=== PATIENT | male | born 2000 | race Caucasian/White ===

== ENCOUNTER 2021-02-24 18:42 | Emergency (ER) | payer OTHER ==
[~2021-02-24] VITALS: Ht 170.2 cm; Wt 82.0 kg
[2021-02-24 19:03] VITALS: BP 155/89
[2021-02-24] MEDS ORDERED: LIDO:MAALOX 1:1 20 ML SINGLE DOSE. PO ONE (20:15)
[2021-02-24] MEDS ORDERED: FAMOTIDINE 20 MG/2 ML VIAL IVP ONE (20:15)
[2021-02-24] MEDS ORDERED: IOHEXOL 300 MG/ML 75 ML VIAL. IV ONE (20:30)
--- NOTE | 2021-02-24 20:33 | PHYS DOC ---
Past History Past Surgical History: No Surgical History Additional Smoking Information: Vape nicotine Alcohol Use: Occasionally Drug Use: None General Adult EDM: Chief Complaint: ABDOMINAL PAIN HPI: HPI: Patient is a 20 year old male presenting to the ED with abdominal pain. The pain is located in midline and left abdomen, started last night and has gotten worse. He describes the pain as sharp and throbbing. Pain worsens with movement such as climbing stairs. He states he had a similar pain a few years ago, he got a CT scan and was told he had "intestinal inflammation". Denies nausea, vomiting, diarrhea. No changes in the diet. Denies changes in bowel movements and urination. Denies blood in the stool. Denies chest pain, SOB or palpitations. Denies sick contacts or any history of trauma. Review of Systems: Review of Systems: Constitutional: Denies fever or chills Eyes: Denies redness or eye pain HENT: Denies nasal congestion or sore throat Respiratory: Denies cough or shortness of breath Cardiovascular: Denies chest pain or palpitations GI: Has abdominal pain. Denies nausea, or vomiting : Denies dysuria or hematuria Musculoskeletal: Denies back pain or joint pain Integument: Denies rash or skin lesions Neurologic: Denies headache, focal weakness or sensory changes Complete systems were reviewed and found to be within normal limits, except as documented in this note. Current Medications: Current Meds: Current Medications Medications (Trade) Dose Ordered Sig/[place] Start Time Stop Time Status Last Admin Dose Admin Famotidine (Pepcid Vial) 20 mg 1X ONCE 02/24/21 20:15 02/24/21 20:16 DC Multi-Ingredient Mouthwash/Gargle (Gi Cocktail) 20 ml 1X ONCE 02/24/21 20:15 02/24/21 20:16 DC Allergies: Allergies: Allergies Coded Allergies Type Severity Reaction Last Updated Verified No Known Drug Allergies 02/24/21 No Physical Exam: PE: Constitutional: Well developed, well nourished, no acute distress, non-toxic appearance HENT: Normocephalic, atraumatic Eyes: EOMI, conjunctiva normal, no discharge Neck: Normal range of motion, no tenderness, supple Lungs & Thorax: No respiratory distress, equal chest rise and fall Abdomen: Soft, no distention, no scars, no ecchymosis. Pain to palpation in the LLQ, midline and suprapubic area. Skin: Warm, dry, no erythema, no rash Back: No tenderness, no CVA tenderness Extremities: No tenderness, ROM intact, no edema Neurologic: Alert and oriented X 3, normal motor function, normal sensory function, no focal deficits noted Psychologic: Affect normal, judgment normal Current Patient Data: Vital Signs: Vital Signs Date Time Temp Pulse Resp B/P (MAP) Pulse Ox O2 Delivery O2 Flow Rate FiO2 02/24/21 19:03 99.4 85 16 155/89 98 Room Air EKG: EKG: [] Radiology/Procedures: Radiology/Procedures: PROCEDURE: CT ABD PELV W/ IV CONTRST ONLY Examination: CT of the abdomen pelvis with IV contrast HISTORY: History of left lower quadrant abdominal pain COMPARISON: None available TECHNIQUE: Axial CT images of the abdomen pelvis were performed with IV contrast. Coronal and sagittal reformats performed Exposure: One or more of the following individualized dose reduction techniques were utilized for this examination: 1. Automated exposure control 2. Adjustment of the mA and/or kV according to patient size 3. Use of iterative reconstruction technique FINDINGS: The bibasilar lungs are clear. 4.5 mm nodule left lower lobe of the lung. No evidence of free air identified in the abdomen. The liver, spleen, adrenals grossly appears unremarkable. The gallbladder is mildly distended. The stomach is mildly distended. The visualized pancreas grossly appears unremarkable. Small bowel is nondilated. The appendix is normal. Multiple colon diverticulosis. There is moderate inflammatory fat stranding identified about the distal descending colon likely acute diverticulitis. Urinary bladder is mildly distended. The bilateral kidneys enhance symmetrically. Tiny subcentimeter cyst bilateral kidneys likely cysts. No evidence of lytic bony destructive lesion. IMPRESSION: 1. Moderate inflammatory fat stranding identified about the distal descending colon likely acute diverticulitis. 2. 4.5 mm nodule left lower lobe of the lung. Follow-up per Fleischner Society guidelines. Fleischner Society 2017 guidelines for management of incidentally detected pulmonary nodules in adults SOLID NODULES: SINGLE NODULE: Less than 6 mm; low risk-no routine follow-up; high risk- optional CT study at 12 months. (Certain patients at high risk with suspicious nodule morphology, upper lobe location, or both may warrant 12 month follow-up) 6-8 mm; low risk-CT study at 6-12 months, then consider CT at 18-24 months; high risk-CT study at 6-12 months, then CT at 18-24 months. Greater than 8 mm; low risk-consider CT at 3 months, PET/CT or tissue sampling; high risk-consider CT at 3 months, PET/CT, or tissue sampling. MULTIPLE NODULES: Less than 6 mm; low risk-no routine follow-up; high risk- optional CT at 12 months (certain patients at high risk for suspicious nodule. If solid components or growth develops, consider resection morphology, upper lobe location, or both may warrant 12 month follow-up) 6-8 mm; low risk-CT at 3-6 months, then consider CT at 18-24 months; high risk- CT at 3-6 months, then at 18-24 months. Greater than 8 mm; low risk-CT at 3-6 months, then consider CT at 18-24 months; high risk-CT at 3-6 months, then at 18-24 months. Note - Use most suspicious nodule as guide to management. Follow-up intervals may vary according to size and risk. SUBSOLID NODULES SINGLE(ground glass): less than 6 mm-no routine follow-up; greater than or equal to 6 mm-CT at 6-12 months to confirm persistence, then CT every 2 years until 5 years. (In certain suspicious nodules less than 6 mm, consider follow-up at 2 and 4 years. If solid component(s) or growth develops, consider resection.) SINGLE (part solid): Less than 6 mm-no routine follow-up; greater than or equal to 6 mm-CT at 3-6 months to confirm persistence. If unchanged and solid component remains less than 6 mm, annual CT should be performed for 5 years. (In practice, part solid nodules cannot be defined as such until greater than or equal to 6 mm, and nodules less than 6 mm do not usually require follow-up. Persistent part solid nodules with solid components greater than or equal to 6 mm should be considered highly suspicious.) MULTIPLE; less than 6 mm-CT at 3-6 months. If stable, consider CT at 2 and 4 years; greater than or equal to 6 mm-CT at 3-6 months. Subsequent management based on the most suspicious nodule(s). (Multiple less than 6 mm pure ground glass nodules are usually benign, but consider follow-up in selected patients at high risk at 2 and 4 years.) NOTE - these recommendations do not apply to lung cancer screening, patients with immunosuppression, or patients with known primary cancer. Electronically signed by: Ronak Santa MD (02/24/2021 9:08 PM) [id number] Heart Score: C/O Chest Pain: N/A Course & Med Decision Making: Course & Med Decision Making Patient is a 20 year old male presenting with abdominal pain. Patient had pain in mostly located in LLQ. No fever, nausea or vomiting and no pain in the RUQ or RLQ, no pain at McBurney's point, likelihood of appendicitis low. Patient given GI cocktail in the ED for symptomatic control. Abdominal CT showed signs of acute diverticulitis. There was an incidental finding of a 4.5 mm nodule left lower lobe of the lung. Prescribed pain medication and Docusate for symptomatic relief as well as Flagyl and Cirpo for the infection. Patient is counseled on following up on the nodule. Patient stable for discharge with outpatient follow-up with PCP. Discussed findings and plan with patient, who acknowledges understanding and agreement. Dragon Disclaimer: Dragalberto Disclaimer: This electronic medical record was generated, in whole or in part, using a voice recognition dictation system. Departure Departure: Impression: Primary Impression: Acute diverticulitis Disposition: HOME / SELF CARE / HOMELESS Condition: STABLE Referrals: SHU BLAND DO (PCP) JAE FLANNERY MD Patient Instructions: Diverticulitis, [id number] Additional Instructions: Increase fluid hydration. Take antibiotic as prescribed. Pain medication as n eeded. Scripts Sennosides/Docusate Sodium (Colace 2-in-1 Tablet) 1 Each Tablet 1 TAB PO QHS PRN for CONSTIPATION, #20 TAB 0 Refills Prov: RIK DIEGO DO 02/24/21 Hydrocodone/Acetaminophen (Hydrocodone-Acetamin 5-325 mg) 1 Each Tablet 0.5-1 EACH PO Q4-6HRS PRN for PAIN, #14 TAB Prov: RIK DIEGO DO 02/24/21 Metronidazole (FLAGYL) 500 Mg Tablet 1 TAB PO TID for Diverticulitis for 7 Days, #21 TAB Prov: RIK DIEGO DO 02/24/21 Ciprofloxacin Hcl (CIPRO) 500 Mg Tablet 1 TAB PO BID for Diverticulitis for 7 Days, #14 TAB Prov: RIK DIEGO DO 02/24/21 RIK DIEGO DO Feb 24, 2021 20:33
[2021-02-24 20:35] LABS: CALCIUM 9.3 mg/dL (8.5-10.1); CREATININE 1.2 mg/dL (0.7-1.3); GFR 77.2; POTASSIUM 4.1 mmol/L (3.5-5.1)
[2021-02-24 20:37] LABS: BASO # 0.1 x10^3/uL (0.0-0.2); BASO % 1 % (0-3); EOS # 0.1 x10^3/uL (0.0-0.7); EOS % 1 % (0-3); HEMATOCRIT 46.7 % (39.0-53.0); HEMOGLOBIN 15.7 g/dL (13.0-17.5); LYMPH # 2.4 x10^3/uL (1.0-4.8); LYMPH % 20 % (24-48); MEAN CORPUSCULAR HEMOGLOBIN 29 pg (25-35); MEAN CORPUSCULAR HGB CONC 34 g/dL (31-37); MEAN CORPUSCULAR VOLUME 86 fL (79-100); MONO # 1.1 x10^3/uL (0.0-1.1); MONO % 9 % (0-9); NEUT # 8.2 x10^3uL (1.8-7.7); NEUT % 69 % (31-73); PLATELET COUNT 306 x10^3/uL (140-400); RED BLOOD COUNT 5.43 x10^6/uL (4.30-5.70); RED CELL DISTRIBUTION WIDTH 13.3 % (11.5-14.5); WHITE BLOOD COUNT 11.8 x10^3/uL (4.0-11.0)
[2021-02-24 20:41] LABS: ALBUMIN 4.1 g/dL (3.4-5.0); ALBUMIN/GLOBULIN RATIO 1.1 (1.0-1.7); TOTAL BILIRUBIN 0.6 mg/dL (0.2-1.0)
--- NOTE | 2021-02-24 21:10 | RAD ---
Examination: CT of the abdomen pelvis with IV contrast HISTORY: History of left lower quadrant abdominal pain COMPARISON: None available TECHNIQUE: Axial CT images of the abdomen pelvis were performed with IV contrast. Coronal and sagitta l reformats performed Exposure: One or more of the following individualized dose reduction techniques were utilized for thi s examination: 1. Automated exposure control 2. Adjustment of the mA and/or kV according to patient size 3. Use of iterative reconstruction technique FINDINGS: The bibasilar lungs are clear. 4.5 mm nodule left lower lobe of the lung. No evidence of free air mary ntified in the abdomen. The liver, spleen, adrenals grossly appears unremarkable. The gallbladder is mildly distended. The stomach is mildly distended. The visualized pancreas grossly appears unremarkab le. Small bowel is nondilated. The appendix is normal. Multiple colon diverticulosis. There is modera te inflammatory fat stranding identified about the distal descending colon likely acute diverticuliti s. Urinary bladder is mildly distended. The bilateral kidneys enhance symmetrically. Tiny subcentimeter cyst bilateral kidneys likely cysts. No evidence of lytic bony destructive lesion. IMPRESSION: 1. Moderate inflammatory fat stranding identified about the distal descending colon likely acute div erticulitis. 2. 4.5 mm nodule left lower lobe of the lung. Follow-up per Fleischner Society guidelines. Fleischner Society 2017 guidelines for management of incidentally detected pulmonary nodules in adult s SOLID NODULES: SINGLE NODULE: Less than 6 mm; low risk-no routine follow-up; high risk-optional CT study at 12 mo nths. (Certain patients at high risk with suspicious nodule morphology, upper lobe location, or both may warrant 12 month follow-up) 6-8 mm; low risk-CT study at 6-12 months, then consider CT at 18-24 months; high risk-CT study at 6-1 2 months, then CT at 18-24 months. Greater than 8 mm; low risk-consider CT at 3 months, PET/CT or tissue sampling; high risk-consider CT at 3 months, PET/CT, or tissue sampling. MULTIPLE NODULES: Less than 6 mm; low risk-no routine follow-up; high risk-optional CT at 12 month s (certain patients at high risk for suspicious nodule. If solid components or growth develops, consi leni resection morphology, upper lobe location, or both may warrant 12 month follow-up) 6-8 mm; low risk-CT at 3-6 months, then consider CT at 18-24 months; high risk-CT at 3-6 months, then at 18-24 months. Greater than 8 mm; low risk-CT at 3-6 months, then consider CT at 18-24 months; high risk-CT at 3-6 m onths, then at 18-24 months. Note - Use most suspicious nodule as guide to management. Follow-up intervals may vary according to s ize and risk. SUBSOLID NODULES SINGLE(ground glass): less than 6 mm-no routine follow-up; greater than or equal to 6 mm-CT at 6-1 2 months to confirm persistence, then CT every 2 years until 5 years. (In certain suspicious nodules less than 6 mm, consider follow-up at 2 and 4 years. If solid component(s) or growth develops, consid er resection.) SINGLE (part solid): Less than 6 mm-no routine follow-up; greater than or equal to 6 mm-CT at 3-6 months to confirm persistence. If unchanged and solid component remains less than 6 mm, annual CT anne uld be performed for 5 years. (In practice, part solid nodules cannot be defined as such until greate r than or equal to 6 mm, and nodules less than 6 mm do not usually require follow-up. Persistent part solid nodules with solid components greater than or equal to 6 mm should be considered highly suspic ious.) MULTIPLE; less than 6 mm-CT at 3-6 months. If stable, consider CT at 2 and 4 years; greater than o r equal to 6 mm-CT at 3-6 months. Subsequent management based on the most suspicious nodule(s). (Mult iple less than 6 mm pure ground glass nodules are usually benign, but consider follow-up in selected patients at high risk at 2 and 4 years.) NOTE - these recommendations do not apply to lung cancer screening, patients with immunosuppression, or patients with known primary cancer. Electronically signed by: Ronak Santa MD (02/24/2021 9:08 PM) [email or web address]
[2021-02-24] MEDS ORDERED: metroNIDAZOLE 500 MG TABLET PO ONE (21:30)
[2021-02-24] MEDS ORDERED: CIPROFLOXACIN HCL 500 MG TABLET PO ONE (21:30)
[2021-02-24] MEDS ORDERED: KETOROLAC 15 MG/ML VIAL. IVP ONE (21:30)
[2021-02-24] MEDS ORDERED: CIPR500T94 PO (21:35)
[2021-02-24] MEDS ORDERED: SENN-121 PO (21:35)
[2021-02-24] MEDS ORDERED: HYDR-2759 PO (21:35)
[2021-02-24] MEDS ORDERED: METR500T PO (21:35)
== END 2021-02-24 21:47 | disposition home or self-care (01) ==
LOC: ER 18:42
DX: K57.92 Diverticulitis of intestine, part unspecified, without perforation or abscess without bleeding (principal); F17.220 Nicotine dependence, chewing tobacco, uncomplicated
CPT/HCPCS: 36415; 74177; 80053; 83690; 83735; 85025; 96374; 96375; 99285; J1885; J3490; Q9967